=== PATIENT | male | born 1980 | race African-American/Black ===

== ENCOUNTER 2023-10-28 09:23 | Emergency (ER) | payer OTHER ==
[2023-10-28] MEDS ORDERED: predniSONE 20 MG TABLET (UD) ONE (09:44)
[2023-10-28] MEDS: predniSONE 20 MG TABLET (UD) PO ONE (09:47)
[2023-10-28 09:54] VITALS: BP 129/89; PULSE 100; RESP 18; TEMP 98.4; BMI 20.2
== END 2023-10-28 10:00 | disposition home or self-care (01) ==
LOC: FER 09:23
DX: R22.0 Localized swelling, mass and lump, head (principal); T78.40XA Allergy, unspecified, initial encounter
CPT/HCPCS: 99283-25